=== PATIENT | male | born 1965 | race Caucasian/White ===

== ENCOUNTER 2021-02-19 14:32 | Emergency (ER) | payer OTHER ==
[2021-02-19 15:16] LABS: HEMOGLOBIN 16.5 gm/dl (14.0-17.5); RED BLOOD COUNT 5.23 M/UL (4.20-5.50); WHITE BLOOD COUNT 6.2 K/UL (4.5-11.0)
[2021-02-19 16:10] LABS: BUN/CREATININE RATIO 16 (0-10)
[2021-02-19] MEDS ORDERED: VISTARIL 50 MG50 MG PO (17:53)
[2021-02-19] MEDS ORDERED: ASPIRIN EC325 MG PO (17:53)
== END 2021-02-19 18:00 | disposition home or self-care (01) ==
LOC: ER1 14:32
PROVIDERS: Physician Assistant
DX: R20.2 Paresthesia of skin (principal); I10 Essential (primary) hypertension
CPT/HCPCS: 70450; 80053; 82550; 82553; 83874; 84484; 85025; 93005; 99285; Q0177